=== PATIENT | female | born 1970 | race Caucasian/White ===

== ENCOUNTER 2017-01-08 23:51 | Emergency (ER) | payer MEDICARE ==
[~2017-01-08] VITALS: Ht 160 cm; Wt 78.0 kg
[2017-01-09] MEDS ORDERED: SODIUM CHLOR 0.9% 1000 ML INJ 1,000 ML IV SCH (00:23)
[2017-01-09] MEDS ORDERED: HALOPERIDOL LACTATE 5 MG/ML AMP IM ONE (00:30)
[2017-01-09] MEDS ORDERED: SODIUM CHLORIDE 0.9% FLUSH 10 ML FLUSH IV FLUSH PRN (00:30)
[2017-01-09 00:49] VITALS: BP 140/88; PULSE 89; RESP 18; TEMP 98.4; O2SAT 96
[2017-01-09] MEDS ORDERED: PROM25TA5 PO (00:55)
[2017-01-09] MEDS ORDERED: WELL200T PO (00:55)
[2017-01-09] MEDS ORDERED: FLUO-1 PO (00:55)
[2017-01-09] MEDS ORDERED: CLON1 PO (00:55)
[2017-01-09] MEDS ORDERED: ZOFR4TAB3 SL (00:55)
[2017-01-09 00:56] VITALS: BP 140/88; PULSE 74; RESP 15; O2SAT 97
[2017-01-09 01:11] LABS: AUTOMATED NEUTROPHIL # 5.5 TH/MM3 (1.8-7.7); BASOPHIL # 0.1 TH/MM3 (0-0.2); EOSINOPHIL # 0.3 TH/MM3 (0-0.4); EOSINOPHIL % 2.8 % (0.0-4.0); HEMATOCRIT 40.1 % (35.0-46.0); HEMO FLAGS DIFF FINAL; LYMPHOCYTE # 3.2 TH/MM3 (1.0-4.8); MEAN CELL VOLUME 78.9 FL (80.0-100.0); MEAN CORPUSCULAR HEMOGLOBIN 25.3 PG (27.0-34.0); MONO % 9.2 % (0.0-8.0); PLATELET COUNT 386 TH/MM3 (150-450); RED BLOOD COUNT 5.08 MIL/MM3 (4.00-5.30); RED CELL DISTRIBUTION WIDTH 19.9 % (11.6-17.2)
[2017-01-09] MEDS ORDERED: ONDANSETRON HCL 4 MG/2 ML VIAL IV PUSH ONE (01:30)
[2017-01-09] MEDS ORDERED: LORazepam 2 MG/ML VIAL IV PUSH ONE ×2 (01:30→03:45)
[2017-01-09 01:32] LABS: ALT (GPT) 19 U/L (10-53); ANION GAP 9 MEQ/L (5-15); AST (GOT) 15 U/L (15-37); BLOOD UREA NITROGEN 14 MG/DL (7-18); CHLORIDE 107 MEQ/L (98-107); GLOMERULAR FILTRATION RATE 86 ML/MIN (>89); POTASSIUM 4.1 MEQ/L (3.5-5.1); SODIUM (NA) 139 MEQ/L (136-145)
[2017-01-09 01:35] LABS: ACETAMINOPHEN LESS THAN 2.0 MCG/ML (10.0-30.0); ALKALINE PHOSPHATASE 82 U/L (45-117); TOTAL BILIRUBIN ADULT 0.3 MG/DL (0.2-1.0)
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
[2017-01-09] MEDS ORDERED: DILA2TAB2 PO (02:48)
[2017-01-09] MEDS ORDERED: diphenhydrAMINE HCL 50 MG/ML VIAL IV PUSH ONE ×3 (03:00→05:15)
[2017-01-09] MEDS ORDERED: OLANZapine IM 10 MG VIAL IM ONE ×2 (03:04→03:15)
[2017-01-09 07:00] VITALS: BP 128/82; PULSE 72; RESP 15; TEMP 98.2; O2SAT 97
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
== END 2017-01-09 08:30 | disposition home or self-care (01) ==
LOC: NEPC 23:51
DX: F29 Unspecified psychosis not due to a substance or known physiological condition (principal); F43.20 Adjustment disorder, unspecified; R11.0 Nausea; F12.90 Cannabis use, unspecified, uncomplicated
CPT/HCPCS: 80053; 80307; 85025; 96361; 96372; 96374; 96375; 99284; J1200; J1630; J2060; J2405; J7030